=== PATIENT | male | born 1970 | race Caucasian/White ===

== ENCOUNTER 2020-06-02 17:05 | Emergency (ER) | payer OTHER, SELFPAY ==
[2020-06-02 17:24] VITALS: BP 135/77; PULSE 111; RESP 18; TEMP 36.3; O2SAT 98
--- NOTE | 2020-06-02 18:05 | ED.URI ---
HPI - URI/Sore Throat General Chief Complaint: Upper Respiratory Infection Stated Complaint: Sinus infection and poss bronchitis Time Seen by Provider: 06/02/20 17:29 Source: patient and RN notes reviewed Mode of arrival: ambulatory Limitations: no limitations History of Present Illness HPI Narrative: Patient presents today with a 1 week history of nasal congestion, headache, rhinorrhea. The congestion has been worse over the last 2 days and states his drainage is clear. He has also had a mildly productive cough for the last 2 days with chills that started today. Denies fever, shortness of breath, sore throat. He took 1 dose of ibuprofen without much relief. Patient is a smoker. MD elicited complaint: cough and nasal congestion Related Data Home Medications Medication Instructions Recorded Confirmed albuterol sulfate 2.5 mg INHALATION Q4H PRN 06/02/20 06/02/20 atorvastatin 5 mg PO DAILY 06/02/20 06/02/20 oxygen-air delivery systems 06/02/20 06/02/20 [[facility] Nasal Cpap System] Allergies Allergy/AdvReac Type Severity Reaction Status Date / Time Penicillins Allergy Severe Swelling Verified 06/02/20 17:17 of Lip/Tongue/Throat Review of Systems Review of Systems: Narrative: CONSTITUTIONAL: Denies body aches, fever, or sweats. + Chills EYES: Denies visual changes, redness, or discharge. ENT: Denies sore throat, or otalgia.+ Rhinorrhea, congestion CARDIOVASCULAR: Denies chest pain, palpitations, or edema. RESPIRATORY: Denies dyspnea. + Cough GASTROINTESTINAL: Denies abdominal pain, nausea, vomiting, or diarrhea. GENITOURINARY: Denies dysuria or hematuria. SKIN: Denies rash, itching, or wounds. MUSCULOSKELETAL: Denies back pain, joint pain, or myalgia. NEUROLOGIC: Denies numbness, tingling, or weakness. + Headache PSYCH: Denies depression or anxiety. [facility] Past Medical History Medical History (Updated 06/02/20 @ 19:36 by Stephanie Guajardo, [employer], ) Chronic bronchitis Hypercholesterolemia Sleep apnea Comments At time of signature, I have reviewed and agree with nursing past medical, surgical, social and family history unless otherwise noted. Please see nursing chart for further information. There is no relevant family history pertinent to the presenting complaint Exam Narrative: Exam Narrative: GENERAL: Well-appearing, well-nourished, and in no acute distress. HEAD: Normocephalic, atraumatic. EYES: EOMI. No redness or drainage. Conjunctivae normal. ENT: Mucous membranes pink and moist. Nares congested. No rhinorrhea. TMs normal bilaterally. Throat normal. Uvula midline. NECK: Normal AROM. Supple. No lymphadenopathy. CHEST: No respiratory distress. Clear to auscultation. HEART: Regular rate and rhythm. No murmur appreciated. Normal peripheral pulses. EXTREMITIES: Normal range of motion. No edema. SKIN: Warm, dry, no rash. Capillary refill normal. Normal skin turgor. NEURO: No focal deficits. Alert and oriented x3. Gait steady. PSYCH: Normal affect. No signs of depression or anxiety. Course Vital Signs Vital signs: Vital Signs Temperature 97.4 F L 06/02/20 17:24 Pulse Rate 111 H 06/02/20 17:24 Respiratory Rate 18 06/02/20 17:24 Blood Pressure 135/77 06/02/20 17:24 Pulse Oximetry 98 06/02/20 17:24 Temperature 97.4 F L 06/02/20 17:24 Pulse Rate 111 H 06/02/20 17:24 Respiratory Rate 18 06/02/20 17:24 Blood Pressure 135/77 06/02/20 17:24 Pulse Oximetry 98 06/02/20 17:24 Reviewed. Pt has been instructed to follow up with his PCP regarding his elevated blood pressure today. MDM - URI/Sore Throat Differential Diagnosis Differential diagnosis: Likely upper respiratory infection, sinusitis, viral infection and bronchitis Lab Data Attestation: I reviewed the patient's lab results. Labs: Lab Results 06/02/20 Range/Units 17:30 POC SARS CoV-2 Ag Negative (Negative) Critical Care Time Critical Care Time Critical Care Time: No Disch
[2020-06-03 19:39] LABS: SARS-CoV-2 RNA PCR Negative
== END 2020-06-02 18:14 | disposition home or self-care (01) ==
PROVIDERS: Emergency Provider Nurse Practitioner
DX: J40 Bronchitis, not specified as acute or chronic (principal); J06.9 Acute upper respiratory infection, unspecified; Z20.822 Contact with and (suspected) exposure to COVID-19; E78.00 Pure hypercholesterolemia, unspecified; G47.30 Sleep apnea, unspecified; F17.200 Nicotine dependence, unspecified, uncomplicated
CPT/HCPCS: 87426; 99213; C9803; G0463; U0003; U0005